=== PATIENT | female | born 1970 | race Caucasian/White ===

== ENCOUNTER → 2016-09-19 | Outpatient (CLI) | payer OTHER | END | disposition home or self-care (01) | LOC: CFH 10:00 | PROVIDERS: ATTEND Obstetrics & Gynecology | DX: Z12.31 Encounter for screening mammogram for malignant neoplasm of breast (principal) | CPT/HCPCS: G0202 ==

== ENCOUNTER 2017-02-15 12:13 | Emergency (ER) | payer OTHER ==
[~2017-02-15] VITALS: Ht 170.2 cm; Wt 76.7 kg
[2017-02-15] MEDS ORDERED: SODIUM CHLORIDE FLUSH 10ML SYR IVF ONE (13:00)
[2017-02-15] MEDS ORDERED: DEXAMETHASONE 4 MG/ML, 1ML IV ONE (13:00)
[2017-02-15] MEDS ORDERED: ICN DEXAMETHASONE 1 MG/ML IV IV ONE (13:00)
[2017-02-15] MEDS ORDERED: SODIUM CHLORIDE 0.9% 1,000ML IVBOLUS ONE (13:00)
[2017-02-15] MEDS ORDERED: METOCLOPRAMIDE 5 MG/ML, 2ML IVPush ONE (13:00)
[2017-02-15] MEDS ORDERED: DIPHENHYDRAMINE 50 MG/ML, 1ML IVPush ONE (13:00)
[2017-02-15] MEDS ORDERED: DIPHENHYDRAMINE 50 MG/ML, 1ML ONE (13:07)
[2017-02-15] MEDS ORDERED: METOCLOPRAMIDE 5 MG/ML, 2ML ONE (13:07)
[2017-02-15] MEDS ORDERED: DEXAMETHASONE 4 MG/ML, 5ML ONE (13:15)
[2017-02-15 14:38] VITALS: BP 147/99
== END 2017-02-15 14:40 | disposition home or self-care (01) ==
LOC: ED 13:30
DX: G43.009 Migraine without aura, not intractable, without status migrainosus (principal); I10 Essential (primary) hypertension
CPT/HCPCS: 96361; 96374; 96375; 99285; J1200; J2765; J7030

== ENCOUNTER → 2018-06-01 | Outpatient (CLI) | payer OTHER | END | disposition home or self-care (01) | LOC: CFH 14:05 | DX: N61.1 Abscess of the breast and nipple (principal); N64.4 Mastodynia ==

== ENCOUNTER → 2020-04-10 | Outpatient (CLI) | payer OTHER | END | disposition home or self-care (01) | LOC: CFH 12:13 | PROVIDERS: ATTEND Family Medicine | DX: N60.01 Solitary cyst of right breast (principal); N60.02 Solitary cyst of left breast | CPT/HCPCS: 76642; 77062; 77066; G0279 ==

== ENCOUNTER 2020-07-31 06:24 | Outpatient (CLI) | payer OTHER ==
[2020-07-31] MEDS ORDERED: TRIAMCINOLONE ACETONIDE 40 MG/ML, 1ML ONE (07:11)
[2020-07-31] MEDS ORDERED: ROPivacaine/PF 0.2%, 10 ML ONE (07:11)
[2020-07-31] MEDS ORDERED: LIDOCAINE-MPF 1%, 5ML ONE ×3 (07:11→07:52)
[2020-07-31] MEDS ORDERED: GADOBUTROL 10 MMOL/10 ML VIAL ONE (14:12)
[2020-07-31] MEDS ORDERED: OMNIPAQUE 300 MG/ML, 10ML VIAL ONE (14:12)
== END 2020-07-31 23:59 | disposition home or self-care (01) ==
LOC: RAD 06:24
PROVIDERS: ATTEND Family Medicine Sports Medicine
DX: M25.551 Pain in right hip (principal); S73.191A Other sprain of right hip, initial encounter; M94.251 Chondromalacia, right hip; M25.851 Other specified joint disorders, right hip; X58.XXXA Exposure to other specified factors, initial encounter; Y93.89 Activity, other specified; Y92.89 Other specified places as the place of occurrence of the external cause; Y99.8 Other external cause status
CPT/HCPCS: 27093; 73525; 73722; A9585; J3301; Q9967; J2795